=== PATIENT | male | born 1955 | race Caucasian/White ===

== ENCOUNTER 2023-06-13 05:47 | Day surgery (SDC) | payer MEDICARE, OTHER, SELFPAY ==
[2023-06-01 10:01] VITALS: BMI 27.3
[2023-06-13 06:20] VITALS: BP 131/90; PULSE 78; RESP 14; TEMP 36.6; O2SAT 99
[2023-06-13] MEDS: LACTATED RINGERS 1,000 ML 150 ML IV CONT (07:19)
--- NOTE | 2023-06-13 07:20 | P.PNAN_ITS ---
Anes - Initial Pre Proc Eval Procedure: Operation Date: 06/13/23 07:30 Proposed Procedures p Screening Colonoscopy - Zenon Loyola DO Date/Time: 06/13/23 07:20 Surgeon: Zenon Loyola DO Pre Op Diagnosis: History of Colon Polyps Patient Data Age: 68 Gender: M Height: 1.75 m Weight: 82.5 kg Last Vital Signs Temp 36.6 C 06/13/23 06:20 Pulse 78 06/13/23 06:20 Resp 14 06/13/23 06:20 BP 131/90 06/13/23 06:20 Pulse Ox 99 06/13/23 06:20 O2 Del Method Room Air 06/13/23 06:20 Allergies Allergy/AdvReac Type Severity Reaction Status Date / Time cefuroxime [From Ceftin] AdvReac Swelling Verified 06/13/23 06:35 Home Medications Medication Instructions Recorded Confirmed Type allopurinol 300 mg tablet 300 mg PO DAILY 06/01/23 06/13/23 History empagliflozin 10 mg tablet 10 mg PO DAILY 06/01/23 06/13/23 History (Jardiance) losartan 100 mg tablet 100 mg PO DAILY 06/01/23 06/13/23 History rosuvastatin 5 mg tablet 5 mg PO DAILY 06/01/23 06/13/23 History Patient hx anesthesia problems: none Family hx anesthesia problems: none Results Review: All pre-operative results and documents have been reviewed as part of the pre- operative evaluation. ON LICENSE OF [facility] Past Medical History Medical History (Updated 06/13/23 @ 07:20 by Kris Meyer MD) HTN (hypertension) Hyperlipidemia Proteinuria Surgical History Surgical History (Updated 06/13/23 @ 07:20 by Kris Meyer MD) H/O colonoscopy H/O hernia repair Social History Social History Smoking status: Never smoker Alcohol intake: current Substance use: never Substance use type: does not use Living arrangements: with family Spiritual care concerns: No Anes - Eval Final PreProcedure Day of Procedure 06/13/23 07:20 Patient weight: overweight Heart: regular rate and rhythm Lungs: clear to auscultation Airway: Mallampati scale class II Neurological: alert and oriented Last oral intake: >/= 8 hours ASA classification: II Emergent: no Anesthetic plan: proceed Anesthesia type and monitoring: general GIVS and standard monitoring Results Review: All pre-operative results and documents have been reviewed as part of the pre- operative evaluation. Informed Consent: The patient's anesthetic plan and its attendant risks and benefits were di scussed with the patient/family/POA. Questions were solicited and answers provided to the satisfaction of the patient/family/POA.
--- NOTE | 2023-06-13 07:32 | PM.IMHP ---
H&P: HPI History of Present Illness Date/Time: 06/13/23 07:32 Chief Complaint: hx colon polyps Narrative: 68 yo man presents for colonoscopy. Last done 5 years ago. Polyps removed at that time. He denies hx of colon cancer. He has had occasional bright red bleeding and had hemorrhoid treatment recently. Review of Systems Review of Systems: All systems reviewed & are unremarkable except as noted in HPI and below Constitutional: Constitutional: Denies chills, Denies fever(s), Denies headache(s) and Denies weight loss Eyes: Eyes: Denies change in vision ENT: Denies dizziness, Denies headache(s), Denies neck mass and Denies throat swelling Cardiovascular: Cardiovascular: Denies chest pain, Denies lightheadedness and Denies dyspnea Respiratory: Respiratory: Denies cough, Denies dyspnea and Denies wheezing Gastrointestinal: Gastrointestinal: Denies abdominal pain, Denies change in bowel habits, Denies nausea and Denies vomiting Genitourinary: Genitourinary: Denies hematuria and Denies dysuria Musculoskeletal: Musculoskeletal: Reports as per HPI Integumentary/Breasts: Skin/Breast: Reports as per HPI Neurologic: Denies dizziness and Denies headache(s) Allergic/Immunologic: Allergic/Immunologic: Denies throat swelling and Denies wheezing [facility] Past Medical History Medical History (Updated 06/13/23 @ 07:33 by Zenon Loyola DO) HTN (hypertension) Hyperlipidemia Proteinuria Surgical History Surgical History (Updated 06/13/23 @ 07:20 by Kris Meyer MD) H/O colonoscopy H/O hernia repair Social History Social History Smoking status: Never smoker Alcohol intake: current Substance use: never Substance use type: does not use Living arrangements: with family Spiritual care concerns: No Meds Home Medications and Allergies Home Medications Medication Instructions Recorded Confirmed Type allopurinol 300 mg tablet 300 mg PO DAILY 06/01/23 06/13/23 History empagliflozin 10 mg tablet 10 mg PO DAILY 06/01/23 06/13/23 History (Jardiance) losartan 100 mg tablet 100 mg PO DAILY 06/01/23 06/13/23 History rosuvastatin 5 mg tablet 5 mg PO DAILY 06/01/23 06/13/23 History Allergies Allergy/AdvReac Type Severity Reaction Status Date / Time cefuroxime [From Ceftin] AdvReac Swelling Verified 06/13/23 06:35 Vital Signs Vital Signs - 24 hr 06/13/23 06:20 Temperature 36.6 C Pulse Rate 78 Respiratory Rate 14 Blood Pressure 131/90 Pulse Oximetry 99 Oxygen Delivery Room Air Exam Const: General: no acute distress and alert Orientation/consciousness: patient oriented x3 HENMT: Head: normocephalic and atraumatic Ears: hearing grossly normal bilaterally Face/Nose/Sinus: Normal nares present Mouth: Yes Normal oral and palatal mucosa present Eyes: Periorbital: periorbital findings normal Sclera: sclerae normal EOM: EOMs intact bilaterally Neck: Neck: normal visual inspection, no lymphadenopathy and trachea midline Chest: Chest palpation & inspection: normal inspection of the chest Resp: Effort & Inspection: normal respiratory effort Auscultation: clear to auscultation bilaterally Cardio: Jugular venous distension: no JVD Rate: regular rate Rhythm: regular rhythm Heart sounds: S1 normal heart sound present and S2 normal heart sound present Peripheral pulses: Peripheral pulses 2+ throughout GI: Inspection: normal to inspection GI Palp: Yes Soft to palpation, No Tenderness to palpation present (GI), No Guarding due to palpation present (GI) and No Rebound tenderness present Percussion: Yes normal to percussion Auscultation: normal bowel sounds : General: Yes no CVA tenderness Back/Spine/Pelvis: Back: no CVA tenderness Neuro: General: patient oriented x3, no focal motor deficits and CN's II-XI intact bilaterally Cognition (Neuro): normal cognition Speech: normal speech Motor exam (neuro): 5/5 motor streng
[2023-06-13 08:09] VITALS: BP 133/101; PULSE 71; RESP 18; O2SAT 98
[2023-06-13 08:19] VITALS: BP 119/93; PULSE 72; RESP 16; O2SAT 99
[2023-06-13 08:29] VITALS: BP 136/81; PULSE 67; RESP 15; O2SAT 100
--- NOTE | 2023-06-13 08:47 | WPDANESPN ---
Anes - Prog Note Post-Op Date/Time: 06/13/23 08:47 Cardiovascular status: normal Respiratory status: normal Airway patency: baseline Mental status: baseline Post-Op hydration status: normal Vital Signs: Last Vital Signs Temp 36.6 C 06/13/23 06:20 Pulse 67 06/13/23 08:29 Resp 15 06/13/23 08:29 BP 136/81 06/13/23 08:29 Pulse Ox 100 06/13/23 08:29 O2 Del Method Room Air 06/13/23 08:29 Pain Score (VAS): 0/10 I/O: Intake & Output 06/12/23 06/13/23 06/13/23 23:59 07:59 15:59 Intake Total 820 Balance 820 Patient Feedback: Patient satisfied with anesthetic care.
== END 2023-06-13 08:47 | disposition home or self-care (01) ==
PROVIDERS: PCP Internal Medicine; Visit Provider Surgery
PROC: 0DJD8ZZ Inspection of Lower Intestinal Tract, Via Natural or Artificial Opening Endoscopic (ICD-10-PCS; CPT 45378; principal; 2023-06-13 07:30)
DX: Z86.010 Personal history of colon polyps (principal); D12.8 Benign neoplasm of rectum; K57.30 Diverticulosis of large intestine without perforation or abscess without bleeding; K64.8 Other hemorrhoids
CPT/HCPCS: 45380

== ENCOUNTER 2023-06-13 07:25 | Outpatient (NON) | payer MEDICARE, OTHER, SELFPAY | END 2023-06-13 07:26 | disposition home or self-care (01) | PROVIDERS: PCP Internal Medicine; Visit Provider Surgery | DX: Z86.010 Personal history of colon polyps (principal) | CPT/HCPCS: 88305 ==

== ENCOUNTER 2024-01-15 08:58 | Outpatient (RCR) | payer MEDICARE, OTHER, SELFPAY ==
--- NOTE | 2024-01-15 10:47 | OPREHPOC ---
Outpatient Therapy Plan of Care This is a Multidisciplinary Plan of Care that may contain components documented by all disciplines (PT, OT, and ST.) PT Problem 1 PT Problem #1 Knowledge Deficit PT Goal 1 Goal The patient will be independent in a home exercise program. Target Visit 4 PT Problem 2 PT Problem #2 Pain PT Goal 1 Goal The patient will report no greater than 2/10 left shoulder pain with daily actvities. Target Visit 8 PT Problem 3 PT Problem #3 Impaired Range of Motion PT Goal 1 Goal The patient will demonstrate at least 160 degrees of left shoulder flexion to improve overhead reaching. Target Visit 8 PT Problem 4 PT Problem #4 Impaired Functional Mobil PT Goal 1 Goal The patient will demonstrate 25% or less self perceived disability per the Quick DASH. Target Visit 8 PT Problem 5 PT Problem #5 Impaired Strength PT Goal 1 Goal The patient will demonstrate at least 4/5 left shoulder strength to improve overhead lifting ability. Target Visit 8
--- NOTE | 2024-01-15 10:47 | PTOPEVAL1 ---
Assessment and note entered by Fabiola Lynn PT Evaluation Information Assessment Status Evaluation Diagnosis L rotator cuff injury Onset 01/09/24 Subjective Information Terrance Akhtar reports he started having left shoulder pain in mid October after performing a lot of heavy work outside. He notes the pain is not improving and he went to his primary care physician and was told he probably has a partial tear in his rotator cuff. He was referred to PT. He notes difficulty raising his arm to the side, back, and forward. It is slowly getting better but he has been babying it. He is using bengay at night to help with pain. He notes he has difficulty sleeping on the left side. He is right hand dominant. He is typically active with house and yard activities as well as playing sports with his grandkids. Reported Pain Level Pain Score 4: Self Report Assessment PT Clinical Summary Terrance Akhtar presents with left shoulder pain with an onset in October 2023 after performing heavy yard work. He has difficulty with lifting his arm to the side, overhead, and behind him. He is limited with his ability to play with his grandkids and perform yard work as well as with his ability to sleep. He objectively demonstrates tenderness at the left rotator cuff insertion, decreased and painful left shoulder AROM, decreased left shoulder strength, and positive special tests consistent with rotator cuff pathology. He will benefit from skilled PT to address these limitations. Plan of Care Interventions Electrical Stimulation,Hot Pack/Cold Pack,Manual Therapy,Neuro Re-education,Patient/Caregiver Educati,Therapeutic Activities,Therapeutic Exercise PT Services Indicated Yes Treatment Frequency and 2 times a week for 8 visits Duration These treatments will address the objective and functional deficits as defined above. The patient will be advanced safely and appropriately in order for the patient to progress towards his/her prior level of function. Additional exercises will be introduced and as well as a comprehensive home exercise program upon discharge, if needed, ?to ensure carryover of functional gains achieved in the clinic. This treatment plan has been reviewed and agreement upon by the patient.
--- NOTE | 2024-02-06 09:22 | OPREHPOC ---
Outpatient Therapy Plan of Care This is a Multidisciplinary Plan of Care that may contain components documented by all disciplines (PT, OT, and ST.) PT Problem 1 PT Problem #1 Knowledge Deficit PT Goal 1 Goal The patient will be independent in a home exercise program. Target Visit 16 Progress Met Comment continue to progress PT Problem 2 PT Problem #2 Pain PT Goal 1 Goal The patient will report no greater than 2/10 left shoulder pain with daily actvities. Target Visit 16 Progress Partially Met Comment continue PT Problem 3 PT Problem #3 Impaired Range of Motion PT Goal 1 Goal The patient will demonstrate at least 160 degrees of left shoulder flexion to improve overhead reaching. Target Visit 16 Progress Partially Met Comment continue PT Problem 4 PT Problem #4 Impaired Functional Mobil PT Goal 1 Goal The patient will demonstrate 25% or less self perceived disability per the Quick DASH. Target Visit 16 Progress Not Met Comment continue PT Problem 5 PT Problem #5 Impaired Strength PT Goal 1 Goal The patient will demonstrate at least 4/5 left shoulder strength to improve overhead lifting ability. Target Visit 16 Progress Partially Met Comment continue
--- NOTE | 2024-02-06 09:22 | PTOPPROG ---
Assessment and note entered by Fabiola Lynn, PT Evaluation Information Assessment Status Progress Diagnosis L rotator cuff injury Onset 01/09/24 Subjective Information Terrance Akhtar reports his left shoulder is getting a little better but he still has pain. He notes he still wakes up with pain if he rolls onto his left side. 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 He is able to reach a little more overhead now as well. He feels his shoulder is getting better but he is not quite where he needs to be. Assessment PT Clinical Summary Terrance Akhtar has completed 8 skilled PT visits for left shoulder pain due to rotator cuff pathology. He is reporting overall improvements since initiating PT however, he is still getting pain when he rolls onto the left side and when he lifts away from his side. He objectively demonstrates improved left shoulder AROM and strength. He also demonstrates less positive special tests. He continues to demonstrate positive special tests for supraspinatus pathology, decreased and painful arc noted with left shoulder abduction AROM, decreased left shoulder strength, and decreased functional abilities. He will continue to benefit from skilled PT to further address ongoing deficits and improve his function. Plan of Care Interventions Electrical Stimulation,Hot Pack/Cold Pack,Manual Therapy,Neuro Re-education,Patient/Caregiver Educati,Therapeutic Activities,Therapeutic Exercise PT Services Indicated Yes Treatment Frequency and 2 times a week for 8 visits Duration These treatments will address the objective and functional deficits as defined above. The patient will be advanced safely and appropriately in order for the patient to progress towards his/her prior level of function. Additional exercises will be introduced and as well as a comprehensive home exercise program upon discharge, if needed, ?to ensure carryover of functional gains achieved in the clinic. This treatment plan has been reviewed and agreement upon by the patient.
--- NOTE | 2024-02-13 10:20 | PCPTNOTE ---
Patient called & cancelled scheduled appointment this date due to his mother having a stroke. -Fabiola Lynn, PT
--- NOTE | 2024-04-15 16:41 | PCPTNOTE ---
Pt was last seen on 02/06/24 when a progress note was done and his POC was extended. He did not return to PT after that date. He is now discharged. -Fabiola Lynn, PT
== END 2024-02-06 09:00 | disposition home or self-care (01) ==
LOC: CHSPT 08:58
PROVIDERS: Visit Provider Nurse Practitioner Family
DX: S46.002D Unspecified injury of muscle(s) and tendon(s) of the rotator cuff of left shoulder, subsequent encounter (principal)
CPT/HCPCS: 97014; 97110; 97140; 97161; G0283

== ENCOUNTER 2024-10-13 11:27 | Outpatient (CLI) | payer MEDICARE, OTHER, SELFPAY ==
--- NOTE | ~2024-10-13 | US_ITS ---
EXAMINATION: US soft tissue lower back DATE: 10/13/2024 11:48 INDICATION: Right-sided low back mass. TECHNIQUE: Multiple grayscale and Doppler ultrasound images of the lower back were obtained. COMPARISON: CT abdomen and pelvis 11/05/2009 FINDINGS: There is an 8 mm hyperechoic subcutaneous mass in the right lower back in the patient's are a of concern. IMPRESSION: 1. 8mm hyperechoic subcutaneous mass in the right lower back, likely inflammation or a benign finding such as a lipoma. Reviewed, dictated and finalized at location A. LPN LVN IMPRESSION: 1. 8mm hyperechoic subcutaneous mass in the right lower back, likely inflammati on or a benign finding such as a lipoma.
== END 2024-10-13 11:28 | disposition home or self-care (01) ==
LOC: MICIMG 11:27
PROVIDERS: PCP Internal Medicine; Visit Provider Internal Medicine
DX: R19.00 Intra-abdominal and pelvic swelling, mass and lump, unspecified site (principal)
CPT/HCPCS: 76705